=== PATIENT | male | born 1950 | race Caucasian/White ===

== ENCOUNTER → 2017-01-01 | Outpatient (CLI) | payer MEDICARE ==
[~2017-01-01] MED LIST: ASPIRIN81 M1 PO; CAL-CITRATE PL1 EACH PO; CALCIUM CITRAT250 MG PO; DESYREL100 MG PO; MOTRIN800 MG PO; MULTIPLE VITAM1 EAC1 PO; PERCOCET 5/31 TABLET PO; PRILOSEC20 MG PO
== END | disposition home or self-care (01) ==
LOC: CDC 08:49
DX: Z01.810 Encounter for preprocedural cardiovascular examination (principal)
CPT/HCPCS: 93000

== ENCOUNTER 2017-01-18 13:26 | Inpatient (IN) | payer OTHER ==
[~2017-01-18] VITALS: Ht 152.4 cm; Wt 57.4 kg
[~2017-01-18 13:26] MED LIST changes: -ASPIRIN81 M1 PO; +LO-DOSE ASPIRIN81 M2 PO
[2017-01-18 14:19] LABS: EOSINOPHIL (%) 0 % (0-5); HEMATOCRIT 37.9 % (38.0-50.0); IMMATURE GRANULOCYTE (%) 0.4 % (0.0-0.7); INSTRUMENT ABS NEUTROPHIL CT 7.9 K/uL; LYMPHOCYTE COUNT 1.3 K/uL (1.0-2.8); MCH 27.7 PG (29.0-34.0); MCHC 33.8 G/DL (30.0-36.0); MEAN PLAT.VOLUME 10.1 uM^3 (9.0-12.4); MONOCYTE (%) 5.7 % (3-12); MONOCYTE COUNT 0.6 K/uL (0-0.8); NEUTROPHIL (%) 80.6 % (45-76); NEUTROPHIL COUNT 7.9 K/uL (1.8-6.4); PLATELET COUNT 314 K/uL (156-360); RBC DIS.WIDTH-CV 13.4 % (11.8-14.6); RBC DIS.WIDTH-SD 40.1 % (39-53); RED BLOOD COUNT 4.62 M/uL (4.00-5.50); WHITE BLOOD COUNT 9.8 K/uL (4.1-10.2)
[2017-01-18 14:24] LABS: INTER. NORMALIZED RATIO 1.1
[2017-01-18 14:27] LABS: PTT 31.8 SEC (25-37)
[2017-01-18 14:29] LABS: CHLORIDE 95 mEq/L (99-109); MAGNESIUM 1.4 mg/dL (1.3-2.7); POTASSIUM 3.3 mEq/L (3.7-5.4); SODIUM 129 mEq/L (136-147)
[2017-01-18 14:30] LABS: GLUCOSE 121 mg/dL (70-99)
[2017-01-18 14:32] LABS: ANION GAP 11 MEQ/L (2-14)
[2017-01-18 14:34] LABS: GFR ESTIMATE (CALCULATED) > 59 mL/min/
[2017-01-18 14:35] LABS: UREA NITROGEN (BUN) 9 mg/dL (9-23)
[2017-01-18 14:41] LABS: TROP-I INTERPRETATION NEGATIVE; TROPONIN-I 0.03 ng/mL (0.0-0.30)
[2017-01-18] MEDS ORDERED: CILOSTAZOL50 MG PO (16:06)
[2017-01-18] MEDS ORDERED: DULOXETINE HCL60 MG PO (16:07)
[2017-01-18] MEDS ORDERED: TAMSULOSIN HCL0.4 MG PO (16:07)
[2017-01-18] MEDS ORDERED: ATORVASTATIN CA20 MG PO (16:08)
[2017-01-18] MEDS ORDERED: ESOMEPRAZOLE MA40 MG PO (16:09)
[2017-01-18 18:01] VITALS: BP 152/69
[2017-01-18 23:44] VITALS: BP 166/77
[2017-01-19 05:58] LABS: HEMATOCRIT 39.2 % (38.0-50.0); MCH 27.1 PG (29.0-34.0); MCHC 32.7 G/DL (30.0-36.0); MCV 82.9 FL (86-99); MEAN PLAT.VOLUME 9.9 uM^3 (9.0-12.4); PLATELET COUNT 328 K/uL (156-360); RBC DIS.WIDTH-CV 13.5 % (11.8-14.6); RBC DIS.WIDTH-SD 41.3 % (39-53); RED BLOOD COUNT 4.73 M/uL (4.00-5.50); WHITE BLOOD COUNT 2.6 K/uL (4.1-10.2)
[2017-01-19 06:24] LABS: ANION GAP 9 MEQ/L (2-14); CHLORIDE 98 MEQ/L (99-109); GFR ESTIMATE (CALCULATED) > 59 mL/min/; GLUCOSE 154 mg/dL (70-99); SAMPLE HEMOLYSIS CHECK 0; SAMPLE ICTERIC CHECK 0; SAMPLE LIPEMIA CHECK 0; UREA NITROGEN (BUN) 11 mg/dL (9-23)
[2017-01-19 06:25] LABS: POTASSIUM 4.5 MEQ/L (3.7-5.4); SODIUM 137 MEQ/L (136-147)
[2017-01-19 07:15] VITALS: BP 147/67
[2017-01-19 15:24] VITALS: BP 168/71
[2017-01-20 08:33] VITALS: BP 150/63
[2017-01-20 15:24] VITALS: BP 131/72
[2017-01-20 23:16] VITALS: BP 158/74
[2017-01-21 07:07] VITALS: BP 161/80
[2017-01-21 16:21] VITALS: BP 155/72
[2017-01-22 00:18] VITALS: BP 170/80
[2017-01-22 07:07] VITALS: BP 172/83
[2017-01-22 15:40] VITALS: BP 167/74
[2017-01-22 22:42] VITALS: BP 170/82
[2017-01-23 06:42] VITALS: BP 133/77
[2017-01-23] MEDS ORDERED: BEVESPI AEROS10.7 GM IH (11:29)
[2017-01-23] MEDS ORDERED: ZITHROMAX250 MG PO (11:30)
[2017-01-23] MEDS ORDERED: NICOTINE PATCH1 EAC1 TD (11:30)
[2017-01-23] MEDS ORDERED: PREDNISONE20 MG PO (11:30)
== END 2017-01-23 13:22 | disposition home or self-care (01) | DRG 190 ==
LOC: EME 13:26 → 5EAST 16:13 → EDOF 16:13 → ENRESERV 16:14 → 5EAST 17:28 → ENPENDDIS 01-23 → 5EAST 01-23 13:22
PROVIDERS: Emergency Medicine; Family Medicine
DX: J44.0 Chronic obstructive pulmonary disease with (acute) lower respiratory infection (principal); J96.01 Acute respiratory failure with hypoxia; E87.1 Hypo-osmolality and hyponatremia; F31.30 Bipolar disorder, current episode depressed, mild or moderate severity, unspecified; N13.8 Other obstructive and reflux uropathy; J44.1 Chronic obstructive pulmonary disease with (acute) exacerbation; K21.0 Gastro-esophageal reflux disease with esophagitis; G89.29 Other chronic pain; F17.210 Nicotine dependence, cigarettes, uncomplicated; E78.5 Hyperlipidemia, unspecified; I73.9 Peripheral vascular disease, unspecified; N40.1 Benign prostatic hyperplasia with lower urinary tract symptoms; M54.5 Low back pain; Z79.82 Long term (current) use of aspirin; Z91.14 Patient's other noncompliance with medication regimen; Z91.19 Patient's noncompliance with other medical treatment and regimen; Z88.0 Allergy status to penicillin
CPT/HCPCS: 71010; 71020; 80048; 83735; 84484; 85025; 85027; 85610; 85730; 87040; 87502; 93005; 94640; 94640 76; 94644; 94799; 99202; 99281; 99285; J1644; J2930

== ENCOUNTER 2017-05-30 23:13 | Inpatient (IN) | payer OTHER ==
[~2017-05-30] VITALS: Ht 152.4 cm; Wt 56.5 kg
[~2017-05-30 23:13] MED LIST changes: +ATORVASTATIN CA20 MG PO; +BEVESPI AEROS10.7 GM IH; +CILOSTAZOL100 MG PO; +DULOXETINE HCL60 MG PO; +ESOMEPRAZOLE MA40 MG PO; +NICOTINE PATCH1 EAC1 TD; +PERCOCET 10/1 TABLET PO; -PERCOCET 5/31 TABLET PO; +PREDNISONE20 MG PO; +TAMSULOSIN HCL0.4 MG PO; +ZITHROMAX250 MG PO
[2017-05-31 01:01] LABS: BASOPHIL (%) 0.4 % (0-1); BASOPHIL COUNT 0.1 K/uL (0-0.1); EOSINOPHIL (%) 0 % (0-5); HEMATOCRIT 43.3 % (38.0-50.0); HEMOGLOBIN 14.2 G/DL (12.5-16.6); IMMATURE GRANULOCYTE (%) 0.5 % (0.0-0.7); LYMPHOCYTE (%) 6.9 % (15-42); MCH 27.5 PG (29.0-34.0); MCHC 32.8 G/DL (30.0-36.0); MCV 83.9 FL (86-99); MONOCYTE (%) 4.2 % (3-12); MONOCYTE COUNT 0.6 K/uL (0-0.8); NEUTROPHIL COUNT 12.3 K/uL (1.8-6.4); PLATELET COUNT 390 K/uL (156-360); RBC DIS.WIDTH-CV 13.6 % (11.8-14.6); RED BLOOD COUNT 5.16 M/uL (4.00-5.50)
[2017-05-31 01:09] LABS: ALBUMIN 3.6 g/dL (3.2-4.8); CHLORIDE 99 mEq/L (99-109); POTASSIUM 3.9 mEq/L (3.7-5.4); SODIUM 138 mEq/L (136-147)
[2017-05-31 01:10] LABS: MAGNESIUM 1.9 mg/dL (1.3-2.7)
[2017-05-31 01:12] LABS: GLUCOSE 132 mg/dL (70-99); TOTAL PROTEIN 7.3 g/dL (6.4-8.3)
[2017-05-31 01:14] LABS: TOTAL BILIRUBIN 0.3 mg/dL (0.0-1.0)
[2017-05-31 01:15] LABS: ALKALINE PHOSPHATASE 120 IU/L (3-129)
[2017-05-31 01:16] LABS: CREATININE 0.8 mg/dL (0.6-1.3); GFR ESTIMATE (CALCULATED) > 59 mL/min/ (58.99-99999)
[2017-05-31 01:17] LABS: AST (GOT) 12 IU/L (2-34); UREA NITROGEN (BUN) 15 mg/dL (9-23)
[2017-05-31 01:19] LABS: ALT (GPT) 10 IU/L (3-49)
[2017-05-31] MEDS ORDERED: MOTRIN800 MG PO (01:28)
[2017-05-31] MEDS ORDERED: PROAIR HFA8.5 GM IH (01:30)
[2017-05-31 02:22] LABS: TROP-I INTERPRETATION NEGATIVE; TROPONIN-I 0.09 ng/mL (0.0-0.30)
[2017-05-31 03:07] VITALS: BP 166/77
[2017-05-31 07:03] VITALS: BP 167/81
[2017-05-31 09:15] LABS: APPEARANCE CLEAR ((CLEAR)); BILIRUBIN NEGATIVE; BLOOD SMALL; COLOR YELLOW ((YELLOW)); GLUCOSE (STRIP) >=500; KETONES 5; LEUKOCYTES NEGATIVE; NITRITE NEGATIVE; PROTEIN (STRIP) 30
[2017-05-31 09:27] LABS: BACTERIA NONE SEEN /HPF; EPITHELIAL CELLS RARE /HPF; MUCUS TRACE /LPF; RED BLOOD CELLS 0-5 /HPF (0-5); UCUL ADDED? NO; WHITE BLOOD CELLS 0-5 /HPF (0-5)
[2017-05-31 16:06] VITALS: BP 158/73
[2017-05-31 19:21] VITALS: BP 166/77
[2017-06-01 00:15] VITALS: BP 158/70
[2017-06-01 04:04] VITALS: BP 154/68
[2017-06-01 06:09] LABS: HEMATOCRIT 41.9 % (38.0-50.0); HEMOGLOBIN 13.2 G/DL (12.5-16.6); MCH 26.6 PG (29.0-34.0); MCHC 31.5 G/DL (30.0-36.0); MCV 84.5 FL (86-99); PLATELET COUNT 389 K/uL (156-360); RBC DIS.WIDTH-CV 13.7 % (11.8-14.6); RBC DIS.WIDTH-SD 42.4 % (39-53); RED BLOOD COUNT 4.96 M/uL (4.00-5.50)
[2017-06-01 06:31] LABS: ALKALINE PHOSPHATASE 100 IU/L (3-129); ALT (GPT) 12 IU/L (3-49); AST (GOT) 17 IU/L (2-34); CHLORIDE 102 MEQ/L (99-109); CREATININE 0.8 MG/DL (0.6-1.3); GFR ESTIMATE (CALCULATED) > 59 mL/min/ (58.99-99999); GLUCOSE 134 mg/dL (70-99); POTASSIUM 4.6 MEQ/L (3.7-5.4); SODIUM 138 MEQ/L (136-147); TOTAL BILIRUBIN 0.2 MG/DL (0.0-1.0); TOTAL PROTEIN 6.1 G/DL (6.4-8.3); UREA NITROGEN (BUN) 16 mg/dL (9-23)
[2017-06-01 11:00] VITALS: BP 154/67
[2017-06-01 16:12] VITALS: BP 130/57
[2017-06-01 20:06] VITALS: BP 122/70
[2017-06-02 00:04] VITALS: BP 165/70
[2017-06-02 03:40] VITALS: BP 152/67
[2017-06-02 07:47] VITALS: BP 173/75
[2017-06-02] MEDS ORDERED: PROAIR HFA8.5 GM IH (10:40)
[2017-06-02] MEDS ORDERED: SPIRIVA RESPIMAT4 GM IH (10:40)
[2017-06-02 11:47] VITALS: BP 158/74
[2017-06-02 15:37] VITALS: BP 165/62
[2017-06-02 23:55] VITALS: BP 178/82
[2017-06-03 04:20] VITALS: BP 176/86
[2017-06-03 07:01] VITALS: BP 186/92
[2017-06-03 10:43] VITALS: BP 151/78
[2017-06-03] MEDS ORDERED: PREDNISONE10 MG PO (10:56)
[2017-06-03] MEDS ORDERED: LEVAQUIN750 MG PO (10:56)
[2017-06-03] MEDS ORDERED: DUONEB 2.5-0.5 M3 ML IPPB (10:57)
[2017-06-03 12:06] VITALS: BP 158/75
== END 2017-06-03 13:34 | disposition home or self-care (01) | DRG 202 ==
LOC: EME → EDBD 23:13 → EDOF 05-31 01:17 → 5WEST 05-31 01:17 → ENRESERV 05-31 01:18 → 5WEST 05-31 03:00 → ENRESERV 06-03 07:22 → 4SOUTH 06-03 07:31
PROVIDERS: Emergency Medicine; Hospitalist
DX: J20.9 Acute bronchitis, unspecified (principal); J44.0 Chronic obstructive pulmonary disease with (acute) lower respiratory infection; J44.1 Chronic obstructive pulmonary disease with (acute) exacerbation; I10 Essential (primary) hypertension; Z87.891 Personal history of nicotine dependence; F31.9 Bipolar disorder, unspecified; K21.9 Gastro-esophageal reflux disease without esophagitis; E78.5 Hyperlipidemia, unspecified; G89.29 Other chronic pain; R09.02 Hypoxemia; I73.9 Peripheral vascular disease, unspecified; N40.0 Benign prostatic hyperplasia without lower urinary tract symptoms
CPT/HCPCS: 71045; 80053; 81003; 82248; 83735; 84484; 85025; 85027; 87070; 87205; 87493; 94010; 94640; 94640 76; 94644; 94667; 94668; 94799; 99202; 99281; 99285; J1100; J1644; J1956; J2930; J3475; J7030; J7512; J7644